=== PATIENT | male | born 1990 | race Hispanic/Latino ===

== ENCOUNTER 2019-06-03 21:43 | Emergency (ER) | payer SELFPAY ==
--- NOTE | 2019-06-03 22:13 | RAD ---
Chest one view HISTORY: Dyspnea. FINDINGS: Cardiac silhouette and pulmonary vasculature are unremarkable. Mediastinum is midline. No c onfluent airspace consolidation or evidence of pneumothorax. IMPRESSION: No active cardiopulmonary abnormalities are demonstrated.
== END 2019-06-03 22:23 | disposition home or self-care (01) ==
LOC: MADERS 21:43
DX: F41.0 Panic disorder [episodic paroxysmal anxiety] (principal)
CPT/HCPCS: 71045; 93005